=== PATIENT | female | born 1990 | race Caucasian/White ===

== ENCOUNTER 2020-08-14 22:23 | Emergency (ER) | payer BC ==
[2020-08-15 00:45] LABS: BUN/CREATININE RATIO 19 (0-10)
[2020-08-15 01:17] LABS: HEMOGLOBIN 14.7 gm/dl (12.3-15.3); RED BLOOD COUNT 4.85 M/UL (4.00-5.10); WHITE BLOOD COUNT 10.1 K/UL (4.5-11.0)
[2020-08-15] MEDS ORDERED: LODINE CAP 300300 MG PO (03:27)
[2020-08-15] MEDS ORDERED: MACROBID 100 M100 MG PO (03:27)
[2020-08-15] MEDS ORDERED: ZOFRAN ODT 4 MG4 MG PO (03:27)
== END 2020-08-15 03:48 | disposition home or self-care (01) ==
LOC: ER1 22:23
PROVIDERS: Emergency Medicine
DX: N39.0 Urinary tract infection, site not specified (principal); R16.1 Splenomegaly, not elsewhere classified; Z88.0 Allergy status to penicillin; Z88.8 Allergy status to other drugs, medicaments and biological substances; Z20.822 Contact with and (suspected) exposure to COVID-19
CPT/HCPCS: 80053; 81001; 83690; 84703; 85025; 96374; 99284; J2405; Q9967; U0002

== ENCOUNTER 2020-08-22 17:46 | Emergency (ER) | payer BC ==
[~2020-08-22 17:46] MED LIST: LODINE CAP 300300 MG PO; MACROBID 100 M100 MG PO; ZOFRAN ODT 4 MG4 MG PO
[2020-08-22 19:26] LABS: HEMOGLOBIN 14.8 gm/dl (12.3-15.3); RED BLOOD COUNT 4.91 M/UL (4.00-5.10); WHITE BLOOD COUNT 16.2 K/UL (4.5-11.0)
[2020-08-22 19:46] LABS: BUN/CREATININE RATIO 15 (0-10)
[2020-08-22] MEDS ORDERED: ONDANSETRON ODT8 MG PO (21:49)
[2020-08-22] MEDS ORDERED: CEPHALEXIN500 M1 PO (21:49)
[2020-08-22] MEDS ORDERED: PROTONIX 40 MG40 M1 PO (21:49)
[2020-08-22] MEDS ORDERED: BENTYL 20MG TAB20 MG PO (21:49)
== END 2020-08-22 22:30 | disposition home or self-care (01) ==
LOC: ER1 17:46
PROVIDERS: Physician Assistant
DX: N39.0 Urinary tract infection, site not specified (principal); E86.0 Dehydration; Z88.0 Allergy status to penicillin; Z88.8 Allergy status to other drugs, medicaments and biological substances
CPT/HCPCS: 80053; 81001; 83690; 84703; 85025; 96374; 99284; C9113; J2405

== ENCOUNTER → 2020-09-21 | Outpatient (CLI) | payer BC ==
[~2020-09-21] MED LIST changes: +BENTYL 20MG TAB20 MG PO; +CEPHALEXIN500 M1 PO; +ONDANSETRON ODT8 MG PO; +PROTONIX 40 MG40 M1 PO
== END ==
LOC: US 09:15
DX: R16.1 Splenomegaly, not elsewhere classified (principal); K80.20 Calculus of gallbladder without cholecystitis without obstruction
CPT/HCPCS: 76705